=== PATIENT | male | born 1990 | race Caucasian/White ===

== ENCOUNTER 2019-05-11 10:35 | Emergency (ER) | payer SELFPAY ==
[2019-05-11 10:42] VITALS: BP 120/82; PULSE 79; TEMP 97.8; BMI 30.3
[2019-05-11] MEDS ORDERED: ERYTHROMYCIN 0.5% OPHTHALMIC OINTMENT 3.5 GM TUBE OD ONE (11:55)
--- NOTE | 2019-05-11 11:55 | PDOC ---
History of Present Illness - General Chief Complaint: Eye Problem Stated Complaint: EYE PROBLEM Time Seen by Provider: 05/11/19 11:33 History Source: Patient Exam Limitations: No Limitations Past History - Travel Traveled outside of the country in the last 30 days: No Close contact w/someone who was outside of country & ill: No - Past Medical History Allergies/Adverse Reactions: Allergies Allergy/AdvReac Type Severity Reaction Status Date / Time No Known Allergies Allergy Verified 05/11/19 10:47 Home Medications: Ambulatory Orders Ibuprofen 800 mg PO TID #30 tablet 04/07/16 Penicillin V Potassium [Pen Vee K -] 500 mg PO TID #30 tablet 04/07/16 Erythromycin 0.5% Eye Ointment [Erythromycin 0.5% Eye Ointment -] 1 applic OD TID #1 tube 05/11/19 COPD: No - Suicide/Smoking/Psychosocial Hx Smoking History: Never smoked Review of Systems - Review of Systems Able to Perform ROS?: Yes Comments:: 05/11/19 11:50 CONSTITUTIONAL: Absent: fever, chills, diaphoresis, generalized weakness, malaise, loss of appetite HEENT: Present: r eye pain Absent: rhinorrhea, nasal congestion, throat pain, throat swelling, difficulty swallowing, mouth swelling, ear pain,visual Changes MUSCULOSKELETAL: Absent: myalgia, arthralgia, joint swelling SKIN: Absent: rash, itching, pallor NEUROLOGIC: Absent: headache, focal weakness or paresthesias, dizziness, unsteady gait, seizure, mental status changes, bladder or bowel incontinence PSYCHIATRIC: Absent: anxiety, depression, suicidal or homicidal ideation, hallucinations. Is the patient limited Upper Sorbian proficient: No *Physical Exam - Vital Signs Last Vital Signs Temp Pulse Resp BP Pulse Ox 97.8 F 79 18 120/82 99 05/11/19 10:39 05/11/19 10:39 05/11/19 10:39 05/11/19 10:39 05/11/19 10:39 - Physical Exam Comments: 05/11/19 11:50 GENERAL: The patient is awake, alert, and fully oriented, in no acute distress. HEAD: Normal with no signs of trauma. EYES: Pupils equal, round and reactive to light, extraocular movements intact, sclera anicteric, conjunctiva injected on the R. Punctate lesion noted at the 5 0'clock position on fluroscien stain EXTREMITIES: Normal range of motion, no edema. NEUROLOGICAL: Normal speech, normal gait. PSYCH: Normal mood, normal affect. SKIN: Warm, Dry, normal turgor, no rashes or lesions noted. Medical Decision Making - Medical Decision Making 05/11/19 11:51 The patient is a 28 y/o M with no PMH who presents with 2 days of R eye redness and pain. The patient is an HVAC worker and he states he believes he may have gotten metal or dust in his eye. He tried warm rags at home with little relief of his symptoms. Admits to photophobia. Denies fevers, chills , visual changes, blurry vision, headache. A/P: eye pain On exam patient with a punctate lesion at the 5'oclock position on the R eye Q-tip used to move a small piece of metal, rust ring noted Will dc home with erythromycin ointment and Ophthalmology follow up I discussed the physical exam findings, ancillary test results and final diagnoses with the patient. I answered all of the patient's questions. The patient was satisfied with the care received and felt comfortable with the discharge plan and treatment plan. The Patient agrees to follow up with the primary care physician/specialist within 24-72 hours. Return precautions were given. *DC/Admit/Observation/Transfer Diagnosis at time of Disposition: Corneal abrasion Qualifiers: Encounter type: initial encounter Laterality: right Qualified Code(s): S05.01XA - Injury of conjunctiva and corneal abrasion without foreign body, right eye, initial encounter - Discharge Dispostion Disposition: HOME Condition at time of disposition: Stable Decision to Admit order: No - Referrals Referrals: Alonzo Yancey MD [Staff Physician] - Bassam Miranda MD [Staff Physician] - - Patient Instructions Printed Discharge Instructions: DI for Corneal Abrasion Additional Instructions: You have a scratch on your eye, or corneal abrasion. Please use the erythromycin ointment 3 times a day to the affected eye. Do not wear contact lenses or put anything in the eye until your symptoms have resolved. Please follow up with ophthalmology within 24-48 hours. Referrals have been provided. Return to the emergency department for visual changes, worsening pain, fever, or if you have any changes in your symptoms. - Post Discharge Activity Forms/Work/School Notes: Back to Work
[2019-05-11] MEDS ORDERED: ERYTHROMYCIN 0.5% OPHTHALMIC OINTMENT 3.5 GM TUBE ONE (11:58)
== END 2019-05-11 12:58 | disposition home or self-care (01) ==
LOC: JER 10:35
PROC: 08C8XZZ Extirpation of Matter from Right Cornea, External Approach (ICD-10-PCS; principal; 2019-05-11)
DX: T15.01XA Foreign body in cornea, right eye, initial encounter (principal); X58.XXXA Exposure to other specified factors, initial encounter; Y93.89 Activity, other specified; Y92.69 Other specified industrial and construction area as the place of occurrence of the external cause; Y99.0 Civilian activity done for income or pay
CPT/HCPCS: 99281-25

== ENCOUNTER 2020-12-29 12:07 | Emergency (ER) | payer OTHER ==
[2020-12-29 12:31] VITALS: BP 127/76; PULSE 88; TEMP 97.9; BMI 30.3
== END 2020-12-29 13:49 | disposition home or self-care (01) ==
LOC: JERFT 12:07
PROC: 0HQGXZZ Repair Left Hand Skin, External Approach (ICD-10-PCS; principal; 2020-12-29)
DX: S61.213A Laceration without foreign body of left middle finger without damage to nail, initial encounter (principal)
CPT/HCPCS: 73140-TC-LT-FY; 99284-25